=== PATIENT | male | born 1990 | race Caucasian/White ===

== ENCOUNTER 2016-05-31 13:09 | Emergency (ER) | payer MEDICAID ==
[2016-05-31 13:30] VITALS: BP 124/61; PULSE 70; TEMP 97; BMI 22.4
[2016-05-31] MEDS ORDERED: OXYCODONE HCL 5 MG TABLET PO ONE (13:36)
--- NOTE | 2016-05-31 13:42 | EDPRACDOC ---
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 PT DENIES LOC, STATES HE GOT THE WIND KNOCKED OUT OF HIM. PT ALSO HAS AN ABRASION TO HIS RIGHT ANTERIOR HAND - NO NEED FOR SUTURES. NO ACUTE DISTRESS NOTED. Chest Wall Injury Location: Reports: Lateral, Front, Chest Context: Reports: Blunt Trauma Tetanus Up To Date?: No Pain Quality: Reports: Sharp Pain Severity: Reports: Moderate Pain Worsens With: Reports: Breathing Shortness of Breath: Mild Associated Signs and Symptoms: Reports: Abrasion ED Past Medical History - History Reviewed Yes Nurses notes reviewed and agree except as marked - Patient Medical History Psychological History: Denies: Depression - Social Medical History Smoking Status: Never smoker EDM Review of Systems - Review of Systems ROS Negative Except as Marked: Yes All systems reviewed and were negative except as marked - Physical Exam Constitutional: Alert Oriented to: Time, Person, Place Last recorded Vital Signs: Last Vital Signs Temp 97 F L 05/31/16 13:29 Pulse 70 05/31/16 13:29 Resp 18 05/31/16 13:29 BP 124/61 05/31/16 13:29 Pulse Ox 99 05/31/16 13:29 Oxygen Pulse Oxygen Saturation 99 O2 Device Oxygen Flow Rate Fraction of Inspired Oxygen ( FIO2) - HEENT Head: Normal ( normocephalic) Eye Exam: Normal (PERRL, EOMI, Sclera white) Oropharynx: Normal (Pharynx:Moist without exudate,Gums-no swelling) Nose: No Symptoms Reported (septum midline) Neck: Normal (FROM, trachea at midline) - Respiratory/Cardiovascular Respiratory: Normal - CTA (BBS clear to auscultation without adventitious sounds ) Cardiovascular: Normal (RRR without murmur, gallop or rub) Respiratory/Cardiovascular Comment: ABRASION NOTED TO RIGHT MEDIAL CHEST WALL, NO FLAIL CHEST OR CREPITUS NOTED - GI Auscultation: Normal (NABS) Palpation: Normal (Soft,No rebound or guarding, non distended) Tenderness: Non tender Cheung's Sign: Negative - Musculoskeletal Back: Normal (Non-Tender) Extremities: Normal (Normal tone, Pulses 2+ No cyanosis or edema, FROM) - Integumentary Skin: Normal, Warm, Dry Lymphatics: Normal (no adenopathy) - Neurologic Memory Impaired: Normal Motor Function: Normal (Normal tone, Pulses 2+ No cyanosis or edema, FROM) Cranial Nerve: Normal (CN II-X11 intact sensation, strength 5/5) Cerebellar: Normal Mood Description: Normal Perception: Normal ED Chest Wall Pain Exam - Chest Wall Pain Chest: Ecchymosis, Tender - Differential Diagnosis Chest Wall Contusion Decision Time to Discharge: 15:20 - Departure Disposition: Home Condition: Stable Final Diagnosis: Contusion of right hand Qualifiers: Encounter type: initial encounter Qualified Code(s): S60.221A - Contusion of right hand, initial encounter Contusion of rib on right side Qualifiers: Encounter type: initial encounter Qualified Code(s): S20.211A - Contusion of right front wall of thorax, initial encounter Instructions: Rib Contusion (ED), Contusion in Adults (ED), Abrasion (ED) Education/Counseling Given To: Patient Education/Counseling Given Regarding: Diagnosis, Treatment, Prognosis, Follow Up Referrals: Otto Oglesby MD [Staff Physician] - One Week Prescriptions: New Oxycodone Immediate Release [Oxycodone Immediate Release (OxyIR)] 5 mg PO Q6H PRN #30 tab PRN Reason: Pain No Action Rivaroxaban [Xarelto] 10 mg PO DAILY Additional Instructions: ICE OR HEAT TO THE AFFECTED AREA. COUGH AND DEEP BREATH HOURLY. FOLLOW UP WITH PCP NEXT WEEK. RETURN TO THE ED FOR WORSENING SYMPTOMS OR CONCERNS
--- NOTE | 2016-05-31 15:08 | DIRPT ---
CLINICAL DATA: Kicked by horse. Anterior abrasion. EXAM: RIGHT HAND - COMPLETE 3+ VIEW COMPARISON: None. FINDINGS: Probable bandage about the posterior aspect of the proximal phalanges on the lateral view. No acute fracture or dislocation. IMPRESSION: No acute osseous abnormality. Electronically Signed By: Raghu Baron M.D. On: 05/31/2016 15:06
--- NOTE | 2016-05-31 15:17 | DIRPT ---
CLINICAL DATA: Right rib pain after being kicked by a horse. EXAM: RIGHT RIBS AND CHEST - 3+ VIEW COMPARISON: None. FINDINGS: Frontal view the chest and three views of right-sided ribs. Frontal view of the chest unchanged prior lower thoracic spine fixation. Midline trachea. Normal heart size and mediastinal contours. No pleural effusion or pneumothorax. Clear lungs. Three views of right-sided ribs demonstrate no displaced rib fracture. IMPRESSION: No displaced rib fracture, pleural fluid, or pneumothorax. Electronically Signed By: Raghu Baron M.D. On: 05/31/2016 15:15
== END 2016-05-31 16:24 | disposition home or self-care (01) ==
LOC: EDMC 13:09
DX: S60.221A Contusion of right hand, initial encounter (principal); S20.211A Contusion of right front wall of thorax, initial encounter; W55.12XA Struck by horse, initial encounter; Y93.9 Activity, unspecified
CPT/HCPCS: 71101; 73130; 99282; G0237; J3490